=== PATIENT | female | born 1980 | race Two or more races ===

== ENCOUNTER → 2024-01-21 | Outpatient (CLI) | payer OTHER, SELFPAY ==
--- NOTE | 2024-01-21 12:45 | XR_ITS ---
Examination: Breast ultrasound complete, bilateral Date and time of exam: January 21, 2024 1247 hours INDICATIONS: Mammogram December 26, 2023 10 mm round nodule lobular margins upper outer right breast, 4 mm focal asymmetry left breast posterior depth CC view Technique: Real-time grayscale ultrasonographic imaging bilateral breasts, including all 4 quadrants as well as nipple retroareolar and axillary regions. Findings: Sonographic images right breast No cystic or solid mass Sonographic images left breast No cystic or solid mass IMPRESSION: BI-RADS Category 1: Negative study
--- NOTE | 2024-01-21 13:45 | XR_ITS ---
Examination: Diagnostic digital mammography, bilateral Computer aided detection 3-D breast Tomosynthesis, bilateral Date and time of exam: January 21, 2024 1301 hours INDICATIONS: Mammogram December 26, 2023 10 mm nodule upper outer right breast 4 mm focal asymmetry left breast posterior depth CC view Technique: Nonmagnified MLO, CC views of the breasts to been obtained, reconstructed from 3-D Tomosynthesis images. R2 computer aided detection program utilized for evaluation of suspicious masses and/or abnormal calcifications. 3-D Tomosynthesis images obtained. Findings: The breasts are heterogeneously dense, which may obscure small masses No suspicious mass is confirmed either breast on the spot views Impression: BI-RADS Category 2: Benign findings Return to yearly follow-up mammography.
== END | disposition home or self-care (01) ==
LOC: CDIM 12:28
PROVIDERS: PCP Family Medicine; Referring Provider Family Medicine; Visit Provider Family Medicine
DX: R92.323 Mammographic fibroglandular density, bilateral breasts (principal); N63.11 Unspecified lump in the right breast, upper outer quadrant
CPT/HCPCS: 76641; 77062; 77066; G0279

== ENCOUNTER 2024-04-13 09:20 | Day surgery (SDC) | payer OTHER, SELFPAY ==
[2024-04-10 10:09] VITALS: BMI 27.1
[2024-04-10 11:01] LABS: Basophils % (Auto) 1 % (0-2.5); Eosinophils # (Auto) 0.1 Thou/mm3 (0.0-0.5); Eosinophils % (Auto) 1 % (0-10); Hemoglobin 14.8 g/dL (12.0-16.0); Immature Granulocytes % (Auto) 0 % (0-0); Immature Granulocytes Auto 0.02 Thou/mm3 (0.00-0.00); Lymphocytes # (Auto) 1.9 Thou/mm3 (1.0-4.8); Lymphocytes % (Auto) 32 % (10-50); Mean Corpuscular HGB Conc 32.9 g/dl (31.0-37.0); Mean Corpuscular Hemoglobin 30.6 pg (25.0-35.0); Mean Corpuscular Volume 93 fL (80-100); Monocytes # (Auto) 0.3 Thou/mm3 (0.0-0.8); Monocytes % (Auto) 5 % (0-12); Neutrophils # (Auto) 3.6 Thou/mm3 (1.8-7.7); Neutrophils % (Auto) 61 % (37-80); Nucleated Red Blood Cell % 0 /100 WBC (0); Platelet Count 215 Thou/mm3 (140-440); RDW Standard Deviation 43.8 fL (36.4-46.3); Red Blood Count 4.83 Miln/mm3 (4.00-5.20)
[2024-04-10 11:09] LABS: Anion Gap 6 (7-16); BUN/Creatinine Ratio 9 Ratio (12-20); Blood Urea Nitrogen 9 mg/dL (9-23); Calcium 9.4 mg/dL (8.3-10.6); Carbon Dioxide 26.1 mMol/L (20.0-31.0); Chloride 108 mMol/L (98-107); Estimated Creatinine Clearance 58.9 mL/min (>60); Glucose 85 mg/dL (74-106); Osmolality,Calculated 277 (275-295); Potassium 4.3 mMol/L (3.4-5.1); Sodium 140 mMol/L (136-145); eGFR > 60 See Note
[2024-04-10 11:17] LABS: HCG,Qualitative Serum Negative
[2024-04-13] VITALS (8 sets, daily range): BP systolic 85–130; BP diastolic 53–76; PULSE 20–81; RESP 13–22; TEMP 36.2–36.5; O2SAT 98–99; BMI 27.3
[2024-04-13] MEDS: RINGERS LACTATED 1000 ML 1,000 ML 20 ML IV (09:46)
--- NOTE | 2024-04-13 11:18 | PD.SUROPNT ---
Date of Procedure 04/13/24 Pre Op Diagnosis Left neck mass Post Op Diagnosis Deep subfascial soft tissue mass in the left neck Procedure Excision of subfascial soft tissue mass from left neck Findings An approximately 2.5 cm lipomatous mass posterior and lateral to sternocleidomastoid muscle immediately lateral to the internal jugular vein Procedure Description Patient brought into the operating room in supine position. After administration of general endotracheal anesthesia, patient's neck was slightly turned to the right. Her left side of the neck was prepped and draped in standard surgical manner. After administration of local anesthesia 3 cm incision was made and dissection was deepened into soft tissue. Platysma was divided. The mass was palpated noted to be lateral and posterior to sternocleidomastoid muscle. The sternocleidomastoid muscle was retracted medially. Patient was noted to have a lipomatous mass that was immediately adjacent to internal jugular vein. The mass was meticulously dissected away from internal jugular vein and surrounding tissue and excised. The mass was approximately 2.5 cm in diameter, was lipomatous in nature. The wound was washed and irrigated. There was no evidence of any lymphadenopathy or adjacent masses. Hemostasis was adequate and satisfactory. Platysma reapproximated with interrupted sutures using 2-0 Vicryl. Subcutaneous tissue closed with interrupted sutures using 2-0 Vicryl and incision was closed with 4-0 Monocryl in subcuticular fashion. Dermabond and pressure dressings applied. Patient tolerated procedure well. She was extubated, breathing spontaneously and without difficulty and was transferred to postanesthesia care in stable condition. Instruments, needles and sponge counts were reported to be correct x 2. Anesthesia GETA and local Pathology / specimen Other (Left neck mass) Estimated Blood Loss 2 Condition Stable Disposition PACU Surgeon Kaden Calderon MD Surgical Staff Operation Date: 04/13/24 11:15 <No data on this case meets the specified criteria>
--- NOTE | 2024-04-13 11:26 | SUR.PHASEI ---
pt received from OR in recovery bay 5. pt obtunded, breahting unlabored on oxymask 8l. oral airway in place. v/s stable. pt dressing to left neck cdi. report received from Kevyn LYNN and Matthew FLORES.
--- NOTE | 2024-04-13 12:04 | SUR.PHASEII ---
pt able to tolerate oral fluids without difficulty swallowing or nausea/vomiting.
--- NOTE | 2024-04-13 12:26 | SUR.PHASEII ---
pt awake and alert, breathing unlabored on room air. v/s stable. pt dressing to left neck cdi. pt able to ambulate to wheelchair with steady gait. d/c instructions given with sister in room, all questions answered. pt d/c via wheelchair with all belongings.
== END 2024-04-13 12:36 | disposition home or self-care (01) ==
PROVIDERS: PCP Family Medicine; Referring Provider Surgery; Visit Provider Surgery
PROC: (CPT 21555; principal; 2024-04-13 11:00)
DX: D17.0 Benign lipomatous neoplasm of skin and subcutaneous tissue of head, face and neck (principal)
CPT/HCPCS: 21555; 36415; 80048; 84703; 85025; A4217; A4649; J0690; J1100; J2250; J2405; J2704; J3010; J3490; J7120